=== PATIENT | male | born 1990 | race Caucasian/White ===

== ENCOUNTER 2020-12-17 16:01 | Emergency (ER) | payer OTHER ==
[~2020-12-17] VITALS: Ht 177.8 cm; Wt 82.7 kg
[2020-12-17 17:24] VITALS: BP 138/82
== END 2020-12-17 17:26 | disposition home or self-care (01) ==
LOC: EMS 16:01
DX: S50.02XA Contusion of left elbow, initial encounter (principal); W19.XXXA Unspecified fall, initial encounter; Y93.89 Activity, other specified; Y92.89 Other specified places as the place of occurrence of the external cause; Y99.0 Civilian activity done for income or pay
CPT/HCPCS: 99283